=== PATIENT | female | born 1990 | race Caucasian/White ===

== ENCOUNTER 2019-11-25 05:36 | Outpatient (CLI) | payer OTHER ==
[~2019-11-25] VITALS: Ht 152.4 cm; Wt 86.4 kg
[2019-11-25] MEDS ORDERED: SPIR100T4 PO (13:46)
[2019-11-25] MEDS ORDERED: CHOL200014 PO (13:46)
[2019-11-25] MEDS ORDERED: bcp PO (13:46)
[2019-11-25] MEDS ORDERED: DESV50TA PO (13:46)
== END 2019-11-25 13:53 | disposition home or self-care (01) ==
LOC: PREOP 05:36
PROVIDERS: ATTEND Otolaryngology Otolaryngology/Facial Plastic Surgery
DX: Z01.818 Encounter for other preprocedural examination (principal)

== ENCOUNTER 2019-12-03 06:59 | Day surgery (SDC) | payer OTHER ==
[2019-12-03] VITALS (12 sets, daily range): BP systolic 117–135; BP diastolic 77–97
[~2019-12-03] VITALS: Ht 152.4 cm; Wt 86.4 kg
[~2019-12-03 06:59] MED LIST: CHOL200014 PO; DESV50TA PO; SPIR100T4 PO; bcp PO
[2019-12-03] MEDS ORDERED: HYDROCORTISONE 100 MG/2 ML (Solu-CORTEF) VIAL IV ONE (07:15)
[2019-12-03] MEDS ORDERED: AMPICILLIN/SULBACTAM INJECTION 1.5 GM in NS (IVPB) 100 ML IV ONE (07:15)
[2019-12-03] MEDS ORDERED: ONDANSETRON 4 MG/2 ML (SDV) Z0FRAN IV ONE (07:30)
[2019-12-03] MEDS ORDERED: FAMOTIDINE 20MG/2ML IV (PEPCID) IV ONE (07:30)
[2019-12-03] MEDS ORDERED: MIDAZOLAM 2 MG/2 ML (VERSED) VIAL IV ONE (07:30)
[2019-12-03 07:32] LABS: BASOPHILS % (AUTO) 1 % (0-10); EOSINOPHILS # (AUTO) 0.1 10^3/uL (0.0-0.3); EOSINOPHILS % (AUTO) 1 % (0-10); HEMATOCRIT 40 % (35-52); HEMOGLOBIN 13.2 G/DL (11.5-16.0); LYMPHOCYTES % (AUTO) 38 % (12-44); MEAN CORPUSCULAR HEMOGLOBIN 29 PG (25-34); MEAN CORPUSCULAR HGB CONC 33 G/DL (32-36); MEAN CORPUSCULAR VOLUME 85 FL (80-99); MEAN PLATELET VOLUME 9.3 FL (7.4-10.4); MONOCYTES # (AUTO) 0.7 X 10^3 (0.0-1.0); MONOCYTES % (AUTO) 9 % (0-12); NEUTROPHILS # (AUTO) 4.1 X 10^3 (1.8-7.8); NEUTROPHILS % (AUTO) 52 % (42-75); PLATELET COUNT 356 10^3/uL (130-400); RED CELL DISTRIBUTION WIDTH 13.2 % (10.0-14.5); WHITE BLOOD COUNT 7.8 10^3/uL (4.3-11.0)
[2019-12-03 07:53] LABS: BUN/CREATININE RATIO 19; CALCIUM 8.7 MG/DL (8.5-10.1); CARBON DIOXIDE 22 MMOL/L (21-32); CHLORIDE 110 MMOL/L (98-107); CREATININE SERUM 0.75 MG/DL (0.60-1.30); GFR ESTIMATED > 60; GLUCOSE 91 MG/DL (70-105); POTASSIUM 3.8 MMOL/L (3.6-5.0); SODIUM 141 MMOL/L (135-145)
[2019-12-03] MEDS: LACTATED RINGERS 1,000 ML IV PRN ×2 (07:54→09:18)
[2019-12-03] MEDS ORDERED: LIDOCAINE/EPI 1%-1:100,000 (XYLOCAINE) 20ML ONE (08:09)
[2019-12-03] MEDS ORDERED: PHENYLEPHRINE 0.5% NASAL SPR (NEO-SYNEPHRINE) REG ONE (08:09)
[2019-12-03] MEDS ORDERED: BSS 15 ML ONE (08:09)
[2019-12-03] MEDS ORDERED: COCAINE HCL 4% 2 ML SYR ONE (08:09)
[2019-12-03] MEDS ORDERED: DEXAMETHASONE 10 MG/ML (DECADRON) 1 ML VIAL ONE (08:12)
[2019-12-03] MEDS ORDERED: LIDOCAINE PF 2% 5 ML (XYLOCAINE) VIAL ONE (08:12)
[2019-12-03] MEDS ORDERED: GLYCOPYRROLATE 0.2 MG/ML (ROBINUL) 2 ML VIAL ONE (08:12)
[2019-12-03] MEDS ORDERED: proPOfol 200 MG/20 ML (DIPRIVAN) VIAL IV ONE (08:12)
[2019-12-03] MEDS ORDERED: fentaNYL INJECTION 100 MCG/2 ML AMP ONE (08:12)
[2019-12-03] MEDS ORDERED: NEOSTIGMINE 3 MG/3 ML VIAL ONE (08:12)
[2019-12-03] MEDS ORDERED: ROCURONIUM 10 MG/ML 5 ML SYRINGE IV ONE (08:12)
[2019-12-03] MEDS ORDERED: SEVOFLURANE (ULTANE) 15 ML INHAL SOLN ONE ×2 (08:12→09:42)
[2019-12-03] MEDS ORDERED: ONDANSETRON 4 MG/2 ML (SDV) Z0FRAN ONE ×2 (08:12→09:57)
--- NOTE | 2019-12-03 08:23 | Progress Note-Pre Operative ---
Pre-Operative Progress Note H&P Reviewed The H&P was reviewed, patient examined and no changes noted. Date Seen by Provider: Dec 03, 2019 Time Seen by Provider: 08:00 Date H&P Reviewed: Dec 03, 2019 Time H&P Reviewed: 08:00 Pre-Operative Diagnosis: Bilat Chronic Sinusitis, Bilat Hyper of Inf Turbs, Dev Septum KASIA PAYAN MD Dec 03, 2019 08:23
[2019-12-03] MEDS ORDERED: D5 1/2 NS W/KCL 20 MEQ/L 1,000 ML IV SCH (09:44)
--- NOTE | 2019-12-03 09:44 | Progress Note-Post Operative ---
Post-Operative Progess Note Surgeon (s)/Silk Conditioner (s) Surgeon KASIA PAYAN MD Silk Conditioner n/a Pre-Operative Diagnosis Bilat Chronic Sinusitis, Bilat Hyper of Inf Turbs, Dev Septum Post-Operative Diagnosis same Post-Op Procedure Note Date of Procedure: Dec 03, 2019 Name of Procedure Performed: Bilat ESS, Bilat Red of Inf Turbs Description & Findings Description and Findings: n/a Anesthesia Type get Estimated Blood Loss minimal Packing none. Specimen(s) collected/removed Bilat Chronic Sinus Disease KASIA PAYAN MD Dec 03, 2019 09:44
[2019-12-03] MEDS ORDERED: HYDROcodone/APAP 5 MG/325 MG (LORTAB) TAB PO PRN (09:45)
[2019-12-03] MEDS ORDERED: ACETAMINOPHEN 325 MG TABLET PO PRN (09:45)
[2019-12-03] MEDS ORDERED: predniSONE 20 MG TAB PO ONE (09:45)
[2019-12-03] MEDS ORDERED: PROMETHAZINE INJ 25 MG/ML (PHENERGAN) AMP IVP PRN (09:45)
[2019-12-03] MEDS ORDERED: morphine INJ 10 MG/ML 1ML (SYR OR VIAL) ONE (09:57)
[2019-12-03] MEDS ORDERED: morphine INJ 10 MG/ML 1ML (SYR OR VIAL) IVP ONE (10:00)
[2019-12-03] MEDS: ONDANSETRON 4 MG/2 ML (SDV) Z0FRAN IVP PRN ×2 (10:03→10:49)
[2019-12-03] MEDS ORDERED: predniSONE 20 MG TAB ONE (11:48)
[2019-12-03] MEDS ORDERED: PRD20T PO (12:07)
[2019-12-03] MEDS ORDERED: AMOX-355 PO (12:07)
[2019-12-03] MEDS ORDERED: HYDR-3812 PO (13:58)
--- NOTE | 2019-12-03 14:34 | Anesthesia-General Post-Op ---
General Patient Condition Mental Status/LOC: Same as Preop Cardiovascular: Satisfactory Nausea/Vomiting: Absent Respiratory: Satisfactory Pain: Controlled Complications: Absent Post Op Complications Complications None Follow Up Care/Instructions Patient Instructions None needed. Anesthesia/Patient Condition Patient Condition Patient was seen after the procedure and she was doing well, no complaints, stable vital signs, no apparent adverse anesthesia problems. KEIRA RUEDA DO Dec 03, 2019 14:34
== END 2019-12-03 13:10 | disposition home or self-care (01) ==
LOC: SDC 06:59
PROVIDERS: ATTEND Otolaryngology Otolaryngology/Facial Plastic Surgery
DX: J32.9 Chronic sinusitis, unspecified (principal); J34.3 Hypertrophy of nasal turbinates; R09.81 Nasal congestion; E66.9 Obesity, unspecified; J34.2 Deviated nasal septum; F17.210 Nicotine dependence, cigarettes, uncomplicated; Z91.013 Allergy to seafood; Z68.37 Body mass index [BMI] 37.0-37.9, adult; Z79.899 Other long term (current) drug therapy
CPT/HCPCS: 36415; 80048; 84703; 85025; 87081